=== PATIENT | female | born 1980 | race Caucasian/White ===

== ENCOUNTER 2016-09-17 21:58 | Emergency (ER) | payer MEDICAID ==
[~2016-09-17] VITALS: Ht 154.9 cm; Wt 56.9 kg
[~2016-09-17 21:58] MED LIST: ALPR1TAB PO; CITA10TA69 PO; SERT100T PO; ZOLP5TAB2 PO
[2016-09-18 00:40] LABS: CLARITY URINE CLEAR (CLEAR); COLOR URINE YELLOW (YELLOW); GLUCOSE URINE NEGATIVE (NEGATIVE); KETONES URINE TRACE (NEGATIVE); LEUKOCYTE ESTERASE URINE NEGATIVE (NEGATIVE); NITRITE URINE NEGATIVE (NEGATIVE); OCCULT BLOOD URINE 1+ (NEGATIVE); PH URINE 6.5 (4.5-8.0); PROTEIN URINE NEGATIVE (NEGATIVE); SPECIFIC GRAVITY URINE 1.022 (1.005-1.030)
[2016-09-18 00:52] LABS: SQUAMOUS EPITHELIAL CELL URINE FEW /lpf (RARE/1+)
[2016-09-18 00:53] LABS: BACTERIA URINE NONE SEEN; WBC URINE 0-2 /hpf (0-2)
[2016-09-18 00:58] LABS: *AMPHETAMINES SCREEN URINE NEGATIVE (NEGATIVE); *BARBITURATES SCREEN URINE NEGATIVE (NEGATIVE); *COCAINE SCREEN URINE NEGATIVE (NEGATIVE); CANNABINOID URINE SCREEN NEGATIVE (NEGATIVE); ECSTASY MDMA SCREEN URINE NEGATIVE (NEGATIVE); METHADONE URINE SCREEN NEGATIVE (NEGATIVE); OPIATES URINE SCREEN NEGATIVE (NEGATIVE); PHENCYCLIDINE URINE SCREEN NEGATIVE (NEGATIVE)
[2016-09-18 01:03] LABS: BASOPHILS % 1.1 % (0.0-2.0); EOSINOPHILS % 2.6 % (0.0-5.0); HEMOGLOBIN. 14.3 g/dL (12.0-16.0); LYMPHOCYTES % 48.7 % (20.0-50.0); MEAN CORPUSCULAR HEMOGLOBIN 30.8 pg (28.0-32.0); MEAN CORPUSCULAR HGB CONC 33.2 g/dL (31.0-37.0); MEAN CORPUSCULAR VOLUME 92.9 fL (81.0-99.0); MEAN PLATELET VOLUME 8.5 fl (7.4-10.4); MONOCYTES % 8.1 % (2.0-8.0); NEUTROPHILS % 39.5 % (40.0-76.0); PLATELET 199 x1000/uL (130-400); RED BLOOD CELL COUNT 4.63 mill/uL (4.2-5.4); RED CELL DISTRIBUTION WIDTH 13.2 % (11.6-14.6); WHITE BLOOD COUNT 6.6 x1000/uL (4.5-11.0)
[2016-09-18 01:14] LABS: CHLORIDE 108 mEq/L (98-107); INDEX HEMOLYSI 1 (1-3); INDEX ICTERIC 1 (1-4); INDEX LIPEMIC 1 (1-3)
[2016-09-18 01:14] LABS: *BENZODIAZEPINES SCREEN URINE PRESUMTIVE POSITIVE (NEGATIVE)
[2016-09-18 01:15] LABS: PROTHROMBIN TIME 10.6 sec
[2016-09-18 01:20] LABS: HCG SCREEN NEGATIVE
[2016-09-18 01:23] LABS: ALANINE AMINOTRANSFERASE 18 IU/L (13-61); ALBUMIN 3.5 g/dL (3.4-5.0); ANION GAP 15; CALCIUM 7.9 mg/dL (8.5-10.1); CARBON DIOXIDE 23 mEq/L (21-32); ETHANOL BLOOD 108 mg/dL; LIPASE 176 IU/L (73-393); UREA NITROGEN BLOOD 9 mg/dL (7-21); eGFR > 60 mL/min (>60)
[2016-09-18 01:40] VITALS: BP 136/94
== END 2016-09-18 01:51 | disposition home or self-care (01) ==
LOC: ER 21:59
DX: R10.9 Unspecified abdominal pain (principal); F32.9 Major depressive disorder, single episode, unspecified; G47.00 Insomnia, unspecified; F17.210 Nicotine dependence, cigarettes, uncomplicated; Z90.49 Acquired absence of other specified parts of digestive tract
CPT/HCPCS: 36415; 80053; 80305; 81001; 81025; 83690; 84703; 85025; 85610; 99284; G0482

== ENCOUNTER 2016-10-24 21:09 | Emergency (ER) | payer MEDICAID ==
[~2016-10-24] VITALS: Ht 154.9 cm; Wt 55.0 kg
[2016-10-25 01:30] VITALS: BP 130/70
== END 2016-10-25 03:50 | disposition home or self-care (01) ==
LOC: ER 21:11
DX: R22.41 Localized swelling, mass and lump, right lower limb (principal); F41.9 Anxiety disorder, unspecified; F32.9 Major depressive disorder, single episode, unspecified; F17.210 Nicotine dependence, cigarettes, uncomplicated; Z79.899 Other long term (current) drug therapy; Z90.49 Acquired absence of other specified parts of digestive tract
CPT/HCPCS: 76886; 99284

== ENCOUNTER 2019-05-10 19:17 | Emergency (ER) | payer MEDICAID ==
[~2019-05-10] VITALS: Ht 162.6 cm; Wt 66.0 kg
[~2019-05-10 19:17] MED LIST changes: +CITA10TA16 PO; -CITA10TA69 PO
[2019-05-10] MEDS ORDERED: FOLIC ACID 1 MG, THIAMINE HCL 100 MG, MVI, ADULT NO.1 10 ML in DEXTROSE 5% WATER 1,000 ML IV ONE ×4 (21:15)
[2019-05-10] MEDS ORDERED: ONDANSETRON HCL 4MG/2ML INJ IV ONE (21:15)
[2019-05-10] MEDS ORDERED: LORAZEPAM 2MG/ML CPJ IV ONE (21:15)
[2019-05-10 21:40] LABS: HEMATOCRIT. 41.4 % (36.0-48.0); HEMOGLOBIN. 14.1 g/dL (12.0-16.0); MEAN CORPUSCULAR HEMOGLOBIN 33.3 pg (28.0-32.0); MEAN CORPUSCULAR VOLUME 97.7 fL (81.0-99.0); MEAN PLATELET VOLUME 8.4 fl (7.4-10.4); PLATELET 109 x1000/uL (130-400); RED BLOOD CELL COUNT 4.24 mill/uL (4.2-5.4); RED CELL DISTRIBUTION WIDTH 15.3 % (11.6-14.6)
[2019-05-10 21:44] LABS: CHLORIDE 102 mEq/L (98-107)
[2019-05-10 21:46] LABS: HCG SCREEN NEGATIVE
[2019-05-10 21:48] LABS: ETHANOL BLOOD < 10 mg/dL
[2019-05-10 22:03] LABS: PLATELET ESTIMATE DECREASED
[2019-05-10] MEDS ORDERED: POTASSIUM CHLORIDE 20MEQ TABLET SR PO ONE (23:00)
[2019-05-10 23:42] LABS: CLARITY URINE CLEAR (CLEAR); COLOR URINE DARK YELLOW (YELLOW); KETONES URINE 2+ (NEGATIVE); LEUKOCYTE ESTERASE URINE 1+ (NEGATIVE); NITRITE URINE POSITIVE (NEGATIVE); OCCULT BLOOD URINE NEGATIVE (NEGATIVE); PH URINE 6.5 (4.5-8.0); PROTEIN URINE TRACE (NEGATIVE)
[2019-05-11 00:18] LABS: *AMPHETAMINES SCREEN URINE NEGATIVE (NEGATIVE); *BARBITURATES SCREEN URINE NEGATIVE (NEGATIVE); *COCAINE SCREEN URINE NEGATIVE (NEGATIVE); METHADONE URINE SCREEN NEGATIVE (NEGATIVE)
[2019-05-11 00:19] LABS: CANNABINOID URINE SCREEN NEGATIVE (NEGATIVE); OPIATES URINE SCREEN NEGATIVE (NEGATIVE); PHENCYCLIDINE URINE SCREEN NEGATIVE (NEGATIVE)
[2019-05-11 00:24] LABS: *BENZODIAZEPINES SCREEN URINE PRESUMTIVE POSITIVE (NEGATIVE)
[2019-05-11 02:24] VITALS: BP 105/61
== END 2019-05-11 02:25 | disposition home or self-care (01) ==
LOC: ER 19:32
DX: F41.9 Anxiety disorder, unspecified (principal); F32.9 Major depressive disorder, single episode, unspecified; R41.82 Altered mental status, unspecified; K76.9 Liver disease, unspecified; F10.10 Alcohol abuse, uncomplicated; Z90.49 Acquired absence of other specified parts of digestive tract; Z79.899 Other long term (current) drug therapy; Y90.0 Blood alcohol level of less than 20 mg/100 ml
CPT/HCPCS: 36415; 76705; 80053; 80305; 80307; 80320; 80329; 81003; 81025; 83735; 84703; 85025; 96365; 96375; 99284; J2060; J2405; J3411; J3490; J7070; Z7610; G0480

== ENCOUNTER 2019-07-14 15:39 | Inpatient (IN) | payer MEDICAID ==
[~2019-07-14] VITALS: Ht 154.9 cm; Wt 68.9 kg
[2019-07-14] MEDS ORDERED: ONDANSETRON HCL 4MG/2ML INJ IV ONE (17:45)
[2019-07-14] MEDS ORDERED: FOLIC ACID 1 MG, THIAMINE HCL 100 MG, MVI, ADULT NO.1 10 ML in DEXTROSE 5% WATER 1,000 ML IV ONE ×8 (17:45→18:00)
[2019-07-14] MEDS ORDERED: LORAZEPAM 2MG/ML CPJ IV ONE (17:45)
[2019-07-14 18:15] LABS: BASOPHILS % 1.4 % (0.0-2.0); EOSINOPHILS % 0.4 % (0.0-5.0); HEMATOCRIT. 38.3 % (36.0-48.0); HEMOGLOBIN. 13.3 g/dL (12.0-16.0); LYMPHOCYTES % 20.9 % (20.0-50.0); MEAN CORPUSCULAR VOLUME 95.2 fL (81.0-99.0); MEAN PLATELET VOLUME 7.7 fl (7.4-10.4); MONOCYTES % 11.2 % (2.0-8.0); NEUTROPHILS % 66.1 % (40.0-76.0); PLATELET 101 x1000/uL (130-400); RED BLOOD CELL COUNT 4.02 mill/uL (4.2-5.4); RED CELL DISTRIBUTION WIDTH 15.7 % (11.6-14.6)
[2019-07-14 18:18] LABS: CHLORIDE 101 mEq/L (98-107)
[2019-07-14] MEDS ORDERED: DOCUSATE SODIUM 100MG CAPSULE PO PRN (20:15)
[2019-07-14] MEDS ORDERED: LORAZEPAM 2MG/ML CPJ IV PRN (20:45)
[2019-07-14 23:20] VITALS: BP 131/84
[2019-07-15] MEDS: LEVETIRACETAM 500MG/5ML CUP PO SCH ×3 (00:21→21:08)
[2019-07-15] MEDS: ACETAMINOPHEN 325MG TABLET PO PRN ×4 (00:22→21:21)
[2019-07-15] MEDS ORDERED: ALPR-341 MT (00:54)
[2019-07-15] MEDS ORDERED: FLUO20TA29 MT (00:55)
[2019-07-15] MEDS ORDERED: LURA40TA MT (00:57)
[2019-07-15 04:00] VITALS: BP 128/77
[2019-07-15] MEDS: CHLORDIAZEPOXIDE 25MG CAPSULE PO PRN ×3 (04:15→16:53)
[2019-07-15] MEDS ORDERED: PNEUMOCOCCAL 23-VAL P-SAC VAC 0.5 ML IM ONE (05:15)
[2019-07-15] MEDS ORDERED: DIPH50CA38 MT (07:08)
[2019-07-15] MEDS ORDERED: HYDR50TA54 MT ×2 (07:12→07:35)
[2019-07-15 08:00] VITALS: BP 130/88
[2019-07-15] MEDS: MULTIVITAMINS,THER W-MINERALS TABLET PO SCH (08:37)
[2019-07-15] MEDS: ENOXAPARIN 40MG/0.4ML SYR SUBCUT SCH (08:37)
[2019-07-15 12:00] VITALS: BP 121/83
[2019-07-15] MEDS ORDERED: MVI, ADULT NO.1 10 ML, FOLIC ACID 1 MG, THIAMINE HCL 100 MG in SODIUM CHLORIDE 0.9% 1,0... IV SCH ×4 (14:00)
[2019-07-15 16:00] VITALS: BP 118/79
[2019-07-15] MEDS: NICOTINE 21MG PATCH TD SCH (16:42)
[2019-07-15] MEDS ORDERED: TEMAZEPAM 15MG CAPSULE PO PRN (19:00)
[2019-07-15 20:00] VITALS: BP 109/85
[2019-07-15] MEDS ORDERED: CHLORDIAZEPOXIDE 25MG CAPSULE PO PRN (20:45)
[2019-07-15] MEDS: DIPHENHYDRAMINE 25MG CAPSULE PO PRN (21:09)
[2019-07-15] MEDS ORDERED: LATUDA 20 MG PO SCH (22:00)
[2019-07-16] VITALS: BP 105/90
[2019-07-16 04:00] VITALS: BP 94/65
[2019-07-16 08:00] VITALS: BP 119/88
[2019-07-16] MEDS: ACETAMINOPHEN 325MG TABLET PO PRN (08:50)
[2019-07-16] MEDS: ENOXAPARIN 40MG/0.4ML SYR SUBCUT SCH (08:50)
[2019-07-16] MEDS: MULTIVITAMINS,THER W-MINERALS TABLET PO SCH (08:50)
[2019-07-16] MEDS: NICOTINE 21MG PATCH TD SCH (08:50)
[2019-07-16] MEDS: LEVETIRACETAM 500MG/5ML CUP PO SCH (08:52)
[2019-07-16 10:40] LABS: HEMATOCRIT. 35.5 % (36.0-48.0); HEMOGLOBIN. 12.5 g/dL (12.0-16.0); MEAN CORPUSCULAR HEMOGLOBIN 33.3 pg (28.0-32.0); MEAN CORPUSCULAR VOLUME 94.4 fL (81.0-99.0); MEAN PLATELET VOLUME 8.3 fl (7.4-10.4); PLATELET 81 x1000/uL (130-400); RED BLOOD CELL COUNT 3.76 mill/uL (4.2-5.4); RED CELL DISTRIBUTION WIDTH 15.2 % (11.6-14.6)
[2019-07-16 10:51] LABS: CHLORIDE 104 mEq/L (98-107)
[2019-07-16 11:02] LABS: PHOSPHORUS 2.7 mg/dL (2.5-4.9)
[2019-07-16 11:49] LABS: PLATELET ESTIMATE DECREASED
[2019-07-16 12:00] VITALS: BP 101/72
[2019-07-16] MEDS: DIPHENHYDRAMINE 25MG CAPSULE PO PRN (12:41)
[2019-07-16] MEDS ORDERED: POTASSIUM CHLORIDE 20MEQ/PACKET PO NR (14:00)
[2019-07-16 16:00] VITALS: BP 116/83
[2019-07-16 16:32] VITALS: BP 116/83
== END 2019-07-16 17:00 | disposition home or self-care (01) | DRG 775 ==
LOC: ER 15:39 → 5WST 19:32 → ENRESERV 22:22
PROVIDERS: ADMIT Internal Medicine Pulmonary Disease; ATTEND Internal Medicine Pulmonary Disease
PROC: 4A00X4Z Measurement of Central Nervous Electrical Activity, External Approach (ICD-10-PCS; principal; 2019-07-16)
DX: F10.239 Alcohol dependence with withdrawal, unspecified (principal); F31.9 Bipolar disorder, unspecified; K70.9 Alcoholic liver disease, unspecified; K70.10 Alcoholic hepatitis without ascites; G40.909 Epilepsy, unspecified, not intractable, without status epilepticus; F41.9 Anxiety disorder, unspecified; K76.0 Fatty (change of) liver, not elsewhere classified; G31.9 Degenerative disease of nervous system, unspecified; Z87.891 Personal history of nicotine dependence; Z90.49 Acquired absence of other specified parts of digestive tract; Z56.0 Unemployment, unspecified; Z79.899 Other long term (current) drug therapy; Z82.0 Family history of epilepsy and other diseases of the nervous system; Z82.49 Family history of ischemic heart disease and other diseases of the circulatory system; Z83.3 Family history of diabetes mellitus; Z81.1 Family history of alcohol abuse and dependence
CPT/HCPCS: 36415; 71045; 76700; 80053; 80320; 81025; 83735; 84100; 85025; 93880; 96365; 96372; 96375; 99291; J1650; J2060; J2405; J3411; J3490; J7070; Q0163; G0480

== ENCOUNTER 2019-08-21 11:45 | Emergency (ER) | payer MEDICAID ==
[~2019-08-21] VITALS: Ht 165.1 cm; Wt 68.0 kg
[~2019-08-21 11:45] MED LIST changes: +ALPR-341 MT; -ALPR1TAB PO; -CITA10TA16 PO; +DIPH50CA38 MT; +FLUO20TA29 MT; +HYDR50TA54 MT; +LURA40TA MT; -SERT100T PO; -ZOLP5TAB2 PO
[2019-08-21] MEDS ORDERED: CEPHALEXIN 250MG CAPSULE PO ONE (15:30)
[2019-08-21] MEDS ORDERED: SULFAMETHOXAZOLE/TRIMETHOPRIM 800/160MG TABLET PO ONE (15:30)
[2019-08-21] MEDS ORDERED: ACETAMINOPHEN 325MG TABLET PO ONE (15:30)
[2019-08-21] MEDS ORDERED: DIAZEPAM 2 MG TABLET PO ONE (15:30)
[2019-08-21] MEDS ORDERED: IBUPROFEN 400MG TABLET PO ONE (15:30)
[2019-08-21 16:01] LABS: CHLORIDE 107 mEq/L (98-107)
[2019-08-21 16:09] LABS: CREATINE KINASE 31 IU/L (26-192)
[2019-08-21 16:22] LABS: HCG SCREEN NEGATIVE
[2019-08-21 16:39] LABS: *BARBITURATES SCREEN URINE NEGATIVE (NEGATIVE)
[2019-08-21 16:40] LABS: *AMPHETAMINES SCREEN URINE NEGATIVE (NEGATIVE); *COCAINE SCREEN URINE NEGATIVE (NEGATIVE); CANNABINOID URINE SCREEN NEGATIVE (NEGATIVE); PHENCYCLIDINE URINE SCREEN NEGATIVE (NEGATIVE)
[2019-08-21 16:41] LABS: METHADONE URINE SCREEN NEGATIVE (NEGATIVE)
[2019-08-21 16:47] LABS: OPIATES URINE SCREEN NEGATIVE (NEGATIVE)
[2019-08-21 17:02] LABS: *BENZODIAZEPINES SCREEN URINE PRESUMTIVE POSITIVE (NEGATIVE)
[2019-08-21 17:18] LABS: BASOPHILS % 0.6 % (0.0-2.0); EOSINOPHILS % 0.6 % (0.0-5.0); HEMOGLOBIN. 12.6 g/dL (12.0-16.0); LYMPHOCYTES % 12.4 % (20.0-50.0); MEAN CORPUSCULAR HEMOGLOBIN 33.5 pg (28.0-32.0); MEAN CORPUSCULAR VOLUME 95.7 fL (81.0-99.0); MEAN PLATELET VOLUME 9.1 fl (7.4-10.4); MONOCYTES % 11.4 % (2.0-8.0); PLATELET 67 x1000/uL (130-400); RED BLOOD CELL COUNT 3.76 mill/uL (4.2-5.4); RED CELL DISTRIBUTION WIDTH 15.8 % (11.6-14.6)
[2019-08-21 18:46] VITALS: BP 106/63
== END 2019-08-21 18:50 | disposition home or self-care (01) ==
LOC: ER 11:58
DX: D69.6 Thrombocytopenia, unspecified (principal); S60.511A Abrasion of right hand, initial encounter; B96.89 Other specified bacterial agents as the cause of diseases classified elsewhere; R56.9 Unspecified convulsions; F41.9 Anxiety disorder, unspecified; F32.9 Major depressive disorder, single episode, unspecified; X58.XXXA Exposure to other specified factors, initial encounter; Y93.9 Activity, unspecified; Z90.49 Acquired absence of other specified parts of digestive tract; Z98.890 Other specified postprocedural states
CPT/HCPCS: 36415; 73120; 73620; 80053; 80305; 82550; 83735; 84703; 85025; 99284

== ENCOUNTER 2019-12-08 17:21 | Emergency (ER) | payer MEDICAID ==
[~2019-12-08] VITALS: Ht 165.1 cm; Wt 59.0 kg
[2019-12-08] MEDS ORDERED: SODIUM CHLORIDE 0.9% 1,000 ML IV ONE (17:54)
[2019-12-08 18:09] LABS: CHLORIDE 106 mEq/L (98-107)
[2019-12-08 18:10] LABS: BASOPHILS % 0.9 % (0.0-2.0); EOSINOPHILS % 1.1 % (0.0-5.0); HCG SCREEN NEGATIVE; HEMATOCRIT. 35.6 % (36.0-48.0); HEMOGLOBIN. 12.5 g/dL (12.0-16.0); LYMPHOCYTES % 21.2 % (20.0-50.0); MEAN CORPUSCULAR HEMOGLOBIN 35.2 pg (28.0-32.0); MEAN CORPUSCULAR VOLUME 100.3 fL (81.0-99.0); MEAN PLATELET VOLUME 8.1 fl (7.4-10.4); NEUTROPHILS % 69.8 % (40.0-76.0); PLATELET 119 x1000/uL (130-400); RED BLOOD CELL COUNT 3.55 mill/uL (4.2-5.4); RED CELL DISTRIBUTION WIDTH 13.1 % (11.6-14.6)
[2019-12-08 18:13] LABS: ETHANOL BLOOD < 10 mg/dL
[2019-12-08] MEDS ORDERED: IBUPROFEN 600MG TABLET PO ONE (20:30)
[2019-12-08 21:14] LABS: CLARITY URINE CLEAR (CLEAR); COLOR URINE YELLOW (YELLOW); KETONES URINE NEGATIVE (NEGATIVE); LEUKOCYTE ESTERASE URINE NEGATIVE (NEGATIVE); NITRITE URINE NEGATIVE (NEGATIVE); OCCULT BLOOD URINE NEGATIVE (NEGATIVE); PH URINE 7.5 (4.5-8.0); PROTEIN URINE NEGATIVE (NEGATIVE); SPECIFIC GRAVITY URINE 1.007 (1.005-1.030)
[2019-12-08 21:37] LABS: *AMPHETAMINES SCREEN URINE NEGATIVE (NEGATIVE); *BARBITURATES SCREEN URINE NEGATIVE (NEGATIVE); *BENZODIAZEPINES SCREEN URINE NEGATIVE (NEGATIVE); *COCAINE SCREEN URINE NEGATIVE (NEGATIVE)
[2019-12-08 21:38] LABS: CANNABINOID URINE SCREEN NEGATIVE (NEGATIVE); METHADONE URINE SCREEN NEGATIVE (NEGATIVE); OPIATES URINE SCREEN NEGATIVE (NEGATIVE); PHENCYCLIDINE URINE SCREEN NEGATIVE (NEGATIVE)
[2019-12-09 01:38] VITALS: BP 129/79
== END 2019-12-09 02:11 | disposition home or self-care (01) ==
LOC: ER 17:21
DX: M79.10 Myalgia, unspecified site (principal); R53.1 Weakness; F41.9 Anxiety disorder, unspecified; F32.9 Major depressive disorder, single episode, unspecified; G40.909 Epilepsy, unspecified, not intractable, without status epilepticus; Z90.49 Acquired absence of other specified parts of digestive tract
CPT/HCPCS: 36415; 71045; 76705; 80053; 80305; 80320; 81003; 83880; 84484; 84703; 85025; 93005; 99285; J7030; G0480

== ENCOUNTER 2022-07-30 14:25 | Emergency (ER) | payer MEDICAID ==
[~2022-07-30] VITALS: Ht 165.1 cm; Wt 75.0 kg
[~2022-07-30 14:25] MED LIST changes: -LURA40TA MT; +LURA40TA2 MT
[2022-07-30 14:28] VITALS: BP 127/83
[2022-07-30] MEDS ORDERED: gabapentin (14:28)
[2022-07-30] MEDS ORDERED: trazodone (14:28)
[2022-07-30] MEDS ORDERED: keppra (14:28)
[2022-07-30] MEDS ORDERED: LEVETIRACETAM 500MG TABLET PO ONE (14:45)
[2022-07-30 15:04] LABS: BASOPHILS % 0.7 % (0.0-2.0); EOSINOPHILS % 0.4 % (0.0-5.0); HEMATOCRIT. 40.8 % (36.0-48.0); HEMOGLOBIN. 13.9 g/dL (12.0-16.0); LYMPHOCYTES % 21.9 % (20.0-50.0); MEAN CORPUSCULAR HEMOGLOBIN 30.2 pg (28.0-32.0); MEAN CORPUSCULAR VOLUME 88.5 fL (81.0-99.0); MEAN PLATELET VOLUME 8.3 fl (7.4-10.4); MONOCYTES % 8.7 % (2.0-8.0); NEUTROPHILS % 68.3 % (40.0-76.0); PLATELET 87 x1000/uL (130-400); RED BLOOD CELL COUNT 4.61 mill/uL (4.2-5.4); RED CELL DISTRIBUTION WIDTH 12.2 % (11.6-14.6)
[2022-07-30 15:06] LABS: CHLORIDE 99 mEq/L (98-107)
[2022-07-30 15:13] LABS: ETHANOL BLOOD < 10 mg/dL
[2022-07-30 15:24] LABS: CLARITY URINE CLOUDY (CLEAR); COLOR URINE DARK YELLOW (YELLOW); KETONES URINE 1+ (NEGATIVE); LEUKOCYTE ESTERASE URINE TRACE (NEGATIVE); NITRITE URINE NEGATIVE (NEGATIVE); OCCULT BLOOD URINE NEGATIVE (NEGATIVE); PROTEIN URINE 2+ (NEGATIVE); SPECIFIC GRAVITY URINE 1.036 (1.005-1.030)
[2022-07-30 15:40] LABS: *AMPHETAMINES SCREEN URINE NEGATIVE (NEGATIVE); *BARBITURATES SCREEN URINE NEGATIVE (NEGATIVE); *BENZODIAZEPINES SCREEN URINE NEGATIVE (NEGATIVE); *COCAINE SCREEN URINE NEGATIVE (NEGATIVE); CANNABINOID URINE SCREEN NEGATIVE (NEGATIVE); METHADONE URINE SCREEN NEGATIVE (NEGATIVE); OPIATES URINE SCREEN NEGATIVE (NEGATIVE); PHENCYCLIDINE URINE SCREEN NEGATIVE (NEGATIVE)
[2022-07-30 15:48] LABS: HCG SCREEN NEGATIVE
[2022-07-30] MEDS ORDERED: POTASSIUM CHLORIDE 20MEQ TABLET SR PO ONE (16:15)
[2022-07-30] MEDS ORDERED: NITR-87 MT (16:52)
== END 2022-07-30 17:11 | disposition home or self-care (01) ==
LOC: ER 14:25
DX: R56.9 Unspecified convulsions (principal); R42 Dizziness and giddiness; E87.6 Hypokalemia; N30.90 Cystitis, unspecified without hematuria; F41.9 Anxiety disorder, unspecified; F31.9 Bipolar disorder, unspecified; Z90.49 Acquired absence of other specified parts of digestive tract; Z98.890 Other specified postprocedural states; Z79.899 Other long term (current) drug therapy; Z88.0 Allergy status to penicillin
CPT/HCPCS: 36415; 80053; 80305; 80320; 81003; 84703; 85025; 93005; 99284; G0480